=== PATIENT | female | born 1995 | race Caucasian/White ===

== ENCOUNTER 2018-10-26 22:15 | Emergency (ER) | payer OTHER ==
[~2018-10-26] VITALS: Ht 162.6 cm; Wt 71.2 kg
[2018-10-26 22:35] VITALS: BP 121/60
--- NOTE | 2018-10-26 22:38 | NUR ---
TO LOBBY A/W BED AMBULATORY
[2018-10-27] MEDS ORDERED: ONDANSETRON 4 MG/2 ML VIAL IVP ONE (00:50)
[2018-10-27] MEDS ORDERED: NACL 0.9% 1,000 ML IV ONE (00:50)
[2018-10-27] MEDS ORDERED: KETOROLAC 30 MG/ML VIAL IVP ONE (00:50)
--- NOTE | 2018-10-27 01:05 | NUR ---
PT CAME TO ER C/O EPIGASTRIC PAIN THAT RADIATES TO THE BACK. PAIN LEVEL 8/10, SHARP PAIN. PT ALSO HAS N/V X 2 DAYS. DENIES DIARRHEA. PT TOOK MOTRIN AT 9PM, CURRENTLY AFEBRILE. NO MED HX. VSS. WILL CONTINUE TO MONITOR.
--- NOTE | 2018-10-27 01:39 | NUR ---
PER PT SHE STATES SHE FEELS MUCH BETTER. PAIN LEVEL 0/10.
[2018-10-27 02:04] VITALS: BP 121/60
--- NOTE | 2018-10-27 02:04 | NUR ---
Patient discharged with v/s stable. Written and verbal after care instructions given and explained. Patient alert, oriented and verbalized understanding of instructions. Ambulatory with steady gait. All questions addressed prior to discharge. ID band removed. Patient advised to follow up with PMD. Rx of ZOFRAN WAS given. Patient educated on indication of medication including possible reaction and side effects. Opportunity to ask questions provided and answered.
== END 2018-10-27 02:06 | disposition home or self-care (01) ==
LOC: MED 22:15
DX: A08.4 Viral intestinal infection, unspecified (principal); M54.5 Low back pain
CPT/HCPCS: 96361; 96372; 96374; 99283; J1885; J2405; J7030

== ENCOUNTER 2019-04-21 09:32 | Emergency (ER) | payer MEDICAID, OTHER ==
[~2019-04-21] VITALS: Ht 170.2 cm; Wt 72.1 kg
[2019-04-21 09:40] VITALS: BP 125/94
--- NOTE | 2019-04-21 09:44 | NUR ---
PT TO RESTROOM
[2019-04-21] MEDS ORDERED: ACETAMINOPHEN EXTRA STRENGTH 500 MG TAB PO ONE (09:45)
--- NOTE | 2019-04-21 09:54 | NUR ---
PT C/O COLD S/S X 2 WEEKS, PRESSURE LIKE CP WITH COUGH X THURSDAY, MIGRAINE AND LOWER BACK PAIN X YESTERDAY. STATES DIZZINESS; NOTED TO BE AMBULATORY WITH STEADY GAIT. DENIES VISION CHANGES. STATES NAUSEA WITHOUT VOMITING. THROBBING HEAD PAIN. HX MIGRAINES. STATES LOWER BACK STABBING PAIN RADIATING DOWN THE LEGS. DENIES INJURY. HR 163 AT TRIAGE, DR RUCKER IS AWARE. PT PLACED ON MONITOR, HR IN 140s WITH REGULAR RHYTHM. STATES SHE DOES FEEL/IS AWARE OF HEART RACING BUT IT DOES NOT BOTHER HER. PT SITTING IN BED, LOOKING AT CELLPHONE, NO SIGNS OF DISTRESS. BED LOCKED & LOW; BEDRAILS UP X1; ERMD TO [place]. PMH- MIGRAINE
--- NOTE | 2019-04-21 10:03 | NUR ---
PT DENIES UTI SYMPTOMS
--- NOTE | 2019-04-21 10:05 | NUR ---
DR RUCKER EVALUATING PT AT BEDSIDE
--- NOTE | 2019-04-21 10:08 | NUR ---
EMT AT BEDSIDE FOR EKG
[2019-04-21] MEDS ORDERED: NACL 0.9% 1,000 ML IV ONE (10:20)
--- NOTE | 2019-04-21 10:33 | NUR ---
PT HR IN THE 120'S ON BEDSIDE MONITOR. PT STATES SHE NO LONGER FEELS THE CHEST PRESSURE SENSATION WITH COUGH.
--- NOTE | 2019-04-21 10:40 | NUR ---
BLOOD AND FLU SWAB WALKED TO LABORATORY
--- NOTE | 2019-04-21 10:58 | NUR ---
NOTIFIED DR RUCKER THAT PT IS REQUESTING PAIN MED FOR HEADACHE AND BACK PAIN. ALSO NOTIFIED THAT PT RECEIVED TYLENOL OVER 1 HOUR AGO, ORAL TEMP HIGHER NOW AT 101.4. DR RUCKER TO PLACE ORDER FOR TORADOL.
[2019-04-21] MEDS ORDERED: KETOROLAC 30 MG/ML VIAL IVP ONE (11:00)
[2019-04-21 11:13] LABS: BASOPHILS % (AUTO) 0.2 % (0.0-2.0); EOSINOPHILS # (AUTO) 0.1 K/uL (0-0.4); EOSINOPHILS % (AUTO) 0.7 % (0.0-4.0); HEMATOCRIT 39.2 % (36-48); HEMOGLOBIN 12.8 g/dL (12.0-16.0); LYMPHOCYTES # (AUTO) 0.5 K/uL (2.5-16.5); LYMPHOCYTES % (AUTO) 6.3 % (20.5-51.1); MEAN CORPUSCULAR HEMOGLOBIN 28 pg (27-31); MEAN CORPUSCULAR HGB CONC 33 g/dL (33-37); MEAN CORPUSCULAR VOLUME 85.7 fL (80-94); MONOCYTES # (AUTO) 0.3 K/uL (0.8-1.0); MONOCYTES % (AUTO) 3.9 % (1.7-9.3); NEUTROPHILS # (AUTO) 7.3 K/uL (1.8-7.7); NEUTROPHILS % (AUTO) 88.9 % (42.2-75.2); PLATELET COUNT (AUTO) 215 K/uL (140-450); RED BLOOD CELL COUNT(AUTO) 4.58 MIL/uL (4.20-5.40); RED CELL DISTRIBUTION WIDTH 13.9 % (11.6-13.7); WHITE BLOOD COUNT (AUTO) 8.2 K/uL (4.8-10.8)
[2019-04-21 11:31] LABS: ALBUMIN 4.2 g/dL (3.4-5.0); ANION GAP 17.9 (8-16); CARBON DIOXIDE 22.6 mmol/L (21-32); CREATININE 0.7 mg/dL (0.6-1.3); POTASSIUM 3.5 mmol/L (3.5-5.1); TOTAL BILIRUBIN 0.3 mg/dL (0.0-1.0)
--- NOTE | 2019-04-21 11:47 | NUR ---
ORAL TEMP 98.1 AT THIS TIME. PT STATES PAIN HAS DECREASED AND CONTINUING TO DECREASE.
--- NOTE | 2019-04-21 11:52 | NUR ---
URINE SAMPLE HANDED TO SENIOR MOBILE DEVELOPER
[2019-04-21 12:20] LABS: BARBITURATE, URINE NEG. ng/ml (NEG <=200); BENZODIAZEPINE, URINE NEG. ng/mL (NEG <=200); CANNABINOID, URINE NEG. ng/mL (NEG <=50); COCAINE, URINE NEG. ng/mL (NEG <=300); OPIATE, URINE NEG. ng/mL (NEG <=2000); PHENCYCLIDINE SCREEN,URINE NEG. ng/mL (NEG <=25)
--- NOTE | 2019-04-21 12:44 | NUR ---
PER DR ALKA PONCE TO D/C PT WITHOUT WAITING FOR URINE RESULTS.
--- NOTE | 2019-04-21 12:48 | NUR ---
Patient discharged with v/s stable. Written and verbal after care instructions given and explained. Patient alert, oriented and verbalized understanding of instructions. Ambulatory with steady gait. AOX4. All questions addressed prior to discharge. ID band removed. Patient advised to follow up with PMD. Rx of MOTRIN, PROMETHAZINE DM, TAMIFLU given. Patient educated on indication of medication including possible reaction and side effects. Opportunity to ask questions provided and answered.
[2019-04-21 12:49] VITALS: BP 109/52
== END 2019-04-21 12:48 | disposition home or self-care (01) ==
LOC: MED 09:32
DX: J10.1 Influenza due to other identified influenza virus with other respiratory manifestations (principal)
CPT/HCPCS: 36415; 80053; 80305; 81002; 81025; 85025; 87804; 93005; 96374; 99284; J1885; J7030